=== PATIENT | female | born 1955 | race Caucasian/White ===

== ENCOUNTER → 2016-07-18 | Outpatient (CLI) | payer MEDICARE, OTHER ==
[~2016-07-18] MED LIST: ALEN70TA3 PO; ASCO500T3 PO; CITA20TA9 PO; DIPH25TA24 PO; DOCU100C5 PO; ESZO3TAB9 PO; IOHEXOL 180 MG/ML 10 ML VIAL. IT ONE; LEVO50CA PO; LIDOCAINE 1% Multi-Dose 20 ML VIAL. ID ONE; MORP15TA PO; NORG1TAB PO; OXYC13.5 PO; PROC10TA2 PO; PROM25TA10 PO; TIZA4CAP PO
--- NOTE | 2016-07-18 10:51 | KCIC ---
PROCEDURE CT lumbar spine with contrast. HISTORY Low back pain with bilateral radiculopathy, longstanding symptoms that have worsened in the last 6 months. TECHNIQUE Axial images and coronal and sagittal re-formatted images are provided. Patient was scanned supine. Exam was performed post myelogram, myelogram procedure will be reported separately. One or more of the following individualized dose reduction techniques were utilized for this exam: 1. Automated exposure control. 2. Adjustment of the mA and/or kV according to patient's size. 3. Use of iterative reconstruction technique. COMPARISON None available at this institution. FINDINGS There is no malalignment. Vertebral body height is maintained. Small Schmorl's node is noted in the inferior endplate of L4 anteriorly. There is slight narrowing of the interspace at L4-L5. The conus medullaris terminates at L2. There are 5 lumbar type vertebral bodies. Findings by individual level are as follows: L1-L2, L2-L3: There is no canal or foraminal compromise. L3-L4: There is a minimal disc bulge and mild facet hypertrophy. There is no canal stenosis. There is minimal foraminal narrowing. L4-L5: There is a diffuse disc bulge. There is mild facet hypertrophy and ligamentum flavum hypertrophy. There is mild circumferential indentation of the contrast column, midline AP diameter of the thecal sac narrowed to 9-10 millimeters. There is mild lateral recess narrowing bilaterally and mild to moderate foraminal narrowing. L5-S1: There is a disc bulge and central protrusion. There is facet hypertrophy. There is mild left foraminal narrowing. IMPRESSION Mild degenerative changes in the lumbar spine, most notably at L4-L5 and L5-S1. Electronically signed by: Nav Braun MD (Jul 18, 2016 10:49:21)
--- NOTE | 2016-07-18 14:10 | KCIC ---
PROCEDURE Lumbosacral spine series with flexion and extension. HISTORY Sharp low back pain extending down both legs, recently worsening. TECHNIQUE Lumbosacral spine series with flexion and extension contains 5 images. COMPARISON None. FINDINGS There are 5 lumbar type vertebral bodies. There is no fracture. Vertebral body height is maintained. Mild narrowing of the interspace is noted at L4-L5. Facet hypertrophy is noted at L4-L5 and L5-S1. Degenerative findings are better evaluated on subsequent myelogram. There is no dynamic instability with flexion or extension. IMPRESSION No evidence of dynamic instability. Mild degenerative changes. Electronically signed by: Nav Braun MD (Jul 18, 2016 14:08:52)
--- NOTE | 2016-07-18 14:13 | KCIC ---
PROCEDURE Lumbar myelogram. HISTORY Sharp low back pain radiating down both legs. TECHNIQUE The procedure, its risks and benefits, and potential complications were discussed with the patient. All questions were answered. Written consent to proceed was obtained. Timeout procedure was performed. The patient was prepped and draped in the usual manner. 1 percent lidocaine was administered locally. Using intermittent fluoroscopic guidance and a 20-gauge guide needle, a 25-gauge Karina needle was positioned intrathecally at the level ofL3 via a paraspinous approach. A small amount of clear CSF was aspirated. Fifteen milliliters of [id number] was injected intrathecally under intermittent fluoroscopic visualization. An image documenting needle position was stored. The needle was withdrawn. There were no immediate complications. Fluoroscopy time [id number]. Image count is 7. COMPARISON None. FINDINGS Ventral extradural defects are noted at L3-L4, L4-L5 and L5-S1. There may be mild circumferential indentation of the contrast column at L4-L5. There is no dynamic instability with flexion or extension. IMPRESSION Lumbar myelogram without complication. Electronically signed by: Nav Braun MD (Jul 18, 2016 14:11:18)
== END | disposition home or self-care (01) ==
LOC: KCIC 08:01
PROVIDERS: ATTEND Neurological Surgery
DX: M54.16 Radiculopathy, lumbar region (principal)
CPT/HCPCS: 72110; 72132; 72265